=== PATIENT | female | born 1965 | race Caucasian/White ===

== ENCOUNTER 2016-10-15 06:20 | Day surgery (SDC) | payer BC ==
[~2016-10-15] VITALS: Ht 162.6 cm; Wt 53.5 kg
[2016-10-15] MEDS ORDERED: PROPOFOL 200MG/ 20ML VIAL (DIPRIVAN) IV ONE (09:29)
[2016-10-15] MEDS ORDERED: fentaNYL CITRATE/PF 100 MCG/2 ML AMP IVP ONE (09:29)
[2016-10-15] MEDS ORDERED: SEVOFLURANE 15 MIN GAS INH ONE (09:29)
[2016-10-15] MEDS ORDERED: ONDANSETRON HCL 4 MG/2 ML VIAL IVP ONE (09:29)
[2016-10-15] MEDS ORDERED: KETOROLAC TROMETHAMINE 30 MG VIAL IVP ONE (09:29)
[2016-10-15] MEDS ORDERED: LR 1,000 ML IV.SOLN IV ONE (09:29)
[2016-10-15] MEDS ORDERED: MIDAZOLAM HCL 5 MG/5 ML VIAL IVP ONE (09:29)
[2016-10-15] MEDS ORDERED: LIDOCAINE 2%, 20 ML MDV INJ ONE (09:29)
[2016-10-15] MEDS ORDERED: NS 1000 ML BAG IV ONE (09:29)
[2016-10-15] MEDS ORDERED: LR 1,000 ML IV SCH (09:59)
[2016-10-15] MEDS ORDERED: ONDANSETRON HCL 4 MG/2 ML VIAL IVP PRN ×2 (10:00→11:00)
[2016-10-15] MEDS ORDERED: HYDROmorphone 1 MG INJ. 1 MG/ML AMPUL IVP PRN (10:00)
[2016-10-15] MEDS ORDERED: MEPERIDINE HCL/PF 25 MG/ML DISP.SYRIN IVP PRN ×2 (10:00)
[2016-10-15] MEDS ORDERED: KETOROLAC TROMETHAMINE 30 MG VIAL IVP PRN (10:00)
[2016-10-15] MEDS ORDERED: HYDROmorphone 2 MG/ML VIAL IVP PRN ×2 (10:00)
[2016-10-15] MEDS ORDERED: HYDROmorphone 2 MG TAB PO PRN (11:00)
[2016-10-15] MEDS ORDERED: OXYCODONE/ACETAMINOPHEN 5-325 TABLET PO PRN (11:00)
[2016-10-15] MEDS ORDERED: PROMETHAZINE HCL 25 MG/ML AMP IM PRN (11:00)
[2016-10-15 11:40] VITALS: BP_SYST 99
== END 2016-10-15 13:30 | disposition home or self-care (01) ==
LOC: SOR 06:20 → SMU 07:36 → SDS 13:30
PROVIDERS: ATTEND Obstetrics & Gynecology
DX: N75.0 Cyst of Bartholin's gland (principal); D64.9 Anemia, unspecified; F41.9 Anxiety disorder, unspecified; F32.9 Major depressive disorder, single episode, unspecified; R00.0 Tachycardia, unspecified; Z88.8 Allergy status to other drugs, medicaments and biological substances; Z98.890 Other specified postprocedural states; G25.81 Restless legs syndrome; Z79.2 Long term (current) use of antibiotics; Z79.84 Long term (current) use of oral hypoglycemic drugs; Z79.899 Other long term (current) drug therapy
CPT/HCPCS: 36415; 56740; 86886; 86900; 86901; 88304; J1885; J2001; J2250; J2405; J2704; J3010; J7030; J7120; 88305